=== PATIENT | male | born 1950 | race Two or more races ===

== ENCOUNTER 2017-10-24 13:09 | Emergency (ER) | payer SELFPAY ==
[~2017-10-24] VITALS: Ht 165.1 cm; Wt 75.9 kg
[2017-10-24 13:11] VITALS: BP 178/93
[2017-10-24] MEDS ORDERED: NPH,100V5 SQ (13:50)
[2017-10-24] MEDS ORDERED: LEVO100T5 PO (13:50)
[2017-10-24] MEDS ORDERED: METF500T5 PO (13:50)
[2017-10-24] MEDS ORDERED: TETR500C3 PO (13:50)
[2017-10-24] MEDS ORDERED: ATOR10TA9 PO (13:50)
[2017-10-24] MEDS ORDERED: IRBE150T25 PO (13:50)
[2017-10-24 14:05] LABS: BASOPHILS # (AUTO) 0.03 x10^3/uL (0-0.1); BASOPHILS % (AUTO) 0 % (0-1); EOSINOPHILS % (AUTO) 5 % (1-7); LYMPHOCYTES # (AUTO) 1.92 x10^3/uL (1-3.4); LYMPHOCYTES % (AUTO) 24 % (22-44); MD NO; MEAN CORPUSCULAR HEMOGLOBIN 29.6 pg (27.5-34.5); MEAN CORPUSCULAR HGB CONC 33.8 g/dL (33.2-36.2); MEAN CORPUSCULAR VOLUME 87.3 fL (81-97); MEAN PLATELET VOLUME 9.5 fL (7.4-10.4); MONOCYTES # (AUTO) 0.43 x10^3/uL (0.2-0.8); MONOCYTES % (AUTO) 5 % (2-9); NEUTROPHILS # (AUTO) 5.13 x10^3/uL (1.8-6.8); NEUTROPHILS % (AUTO) 65 % (42-75); PLATELET COUNT 162 x10^3/uL (130-400); RED BLOOD COUNT 5.28 x10^6/uL (4.38-5.82); RED CELL DISTRIBUTION WIDTH 13.6 % (9.4-14.8)
[2017-10-24 14:10] LABS: ALANINE AMINOTRANSFERASE 35 U/L (12-78); ALBUMIN 3.4 g/dL (3.4-5.0); ANION GAP 6 mmol/L (5-15); CALCIUM 8.6 mg/dL (8.5-10.1); CHLORIDE 105 mmol/L (98-107); CREATININE 0.93 mg/dL (0.7-1.3)
[2017-10-24 14:11] LABS: ALKALINE PHOSPHATASE 150 U/L (45-117); BILIRUBIN,TOTAL 1.4 mg/dL (0.2-1.0); TOTAL PROTEIN 7.2 g/dL (6.4-8.2)
== END 2017-10-24 15:03 | disposition home or self-care (01) ==
LOC: ED 14:57
DX: R21 Rash and other nonspecific skin eruption (principal); I10 Essential (primary) hypertension; E11.9 Type 2 diabetes mellitus without complications; E03.9 Hypothyroidism, unspecified
CPT/HCPCS: 36415; 80053; 85025; 99284